=== PATIENT | female | born 1970 | race African-American/Black ===

== ENCOUNTER → 2016-12-29 | Outpatient (CLI) | payer MEDICARE ==
[2014-12-12 18:25] VITALS: BP 116/74
[~2016-12-29] MED LIST: AMLO5TAB2 PO; CARV25TA2 PO; CLON0.3T PO; CYCL10TA2 PO; FLUO40CA2 PO; GABA-586 PO; HYDR-2762 PO; IBUP-1060 PO; LISI40TA PO; MELO15TA23 PO; METH10TA4 PO; NORT75CA PO; POTA20TA82 PO; TIZA2TAB PO; TRAZ50TA15 PO
--- NOTE | 2016-12-29 16:21 | KCIC ---
INDICATION: Neck pain and pressure for 3 weeks. TECHNIQUE: 3 view cervical spine series was obtained. No comparison is available. FINDINGS: There is no fracture. There is no malalignment. Prevertebral soft tissues are within normal limits. Mild endplate spurring from C4-C5 through C6-C7 is noted. There is no widening of the atlantodental interval. There is a left cervical rib. Right C7 transverse process is prominent. IMPRESSION: Mild endplate spurring from C4-C5 through C6-C7. Electronically signed by: Ha Skelton MD (12/29/2016 4:17 PM) [facility] [place]
== END | disposition home or self-care (01) ==
LOC: KCIC 15:48
PROVIDERS: ATTEND Psychiatry & Neurology Neurology with Special Qualifications in Child Neurology
DX: M54.2 Cervicalgia (principal)
CPT/HCPCS: 72040

== ENCOUNTER → 2017-01-05 | Outpatient (CLI) | payer MEDICARE ==
[2014-12-12 18:25] VITALS: BP 116/74
--- NOTE | 2017-01-06 20:52 | SLEEP ---
DATE OF STUDY: 01/05/2017 OBJECTIVE: The patient is a 46-year-old female with excessive somnolence, who has had sleep studies in the past. Height 65 inches, weight 220 pounds. BMI 36.6 pounds. [place] sleep score 19. The patient also has narcolepsy. INTERPRETATION: The apnea-hypopnea index on this home study is 1.3 events per hour of sleep with a minimal oxygen saturation of 87%. No significant cardiac arrhythmias are seen. Snoring occurred 8.8% of the time. IMPRESSION: Essentially normal home sleep study showing no evidence of significant sleep disordered breathing. Thank you for letting us help with the patient's care. ISSA IRENE MD DR: PAUL/ly JOB#: [id number] / [id number] CHRIS Chow MD
== END | disposition home or self-care (01) ==
LOC: RT 08:33
PROVIDERS: ATTEND Psychiatry & Neurology Neurology with Special Qualifications in Child Neurology
DX: G47.30 Sleep apnea, unspecified (principal)
CPT/HCPCS: G0399

== ENCOUNTER → 2017-01-12 | Outpatient (CLI) | payer MEDICARE ==
[2014-12-12 18:25] VITALS: BP 116/74
--- NOTE | 2017-01-12 12:00 | RAD ---
DATE: 01/12/2017 EXAM: DIGITAL DIAGNOSTIC RT HISTORY: Follow-up on an asymmetry. COMPARISON: Right breast mammogram 04/07/2016, 03/26/2016 This study was interpreted with the benefit of Computerized Aided Detection (CAD). The breast parenchyma is primarily fatty replaced. Breast parenchyma level density A. FINDINGS: CC and MLO views of the right breast were obtained. There are no suspicious microcalcifications, masses or areas of architectural distortion. Previously seen asymmetry is less conspicuous and resembles adjacent fibroglandular tissue. Findings are otherwise stable from prior mammograms. IMPRESSION: Negative right mammogram. Recommend annual screening mammography BI-RADS CATEGORY: 1 NEGATIVE RECOMMENDED FOLLOW-UP: 12M 12 MONTH FOLLOW-UP PQRS compliance statement: Patient information was entered into a reminder system with a target due date 03/26/2017 for the next mammogram. Mammography is a sensitive method for finding small breast cancers, but it does not detect them all and is not a substitute for careful clinical examination. A negative mammogram does not negate a clinically suspicious finding and should not result in delay in biopsying a clinically suspicious abnormality. "Our facility is accredited by the [employer] Mammography Program."
== END | disposition home or self-care (01) ==
LOC: MAMMO 11:59
PROVIDERS: ATTEND Internal Medicine
DX: R92.8 Other abnormal and inconclusive findings on diagnostic imaging of breast (principal)
CPT/HCPCS: G0206; 77065

== ENCOUNTER 2017-07-02 13:08 | Emergency (ER) | payer MEDICARE ==
[2017-07-02] MEDS ORDERED: VALPROIC ACID (AS SODIUM SALT) 500 MG in IV DEXTROSE 5% 50 ML IV ×2 (13:30→17:00)
[2017-07-02 13:47] LABS: URINE HCG POC HCG NEGATIVE (Negative)
[2017-07-02 13:54] LABS: BILIRUBIN,URINE NEGATIVE (NEG); CLARITY,URINE CLEAR; COLOR,URINE YELLOW; GLUCOSE,URINE NEGATIVE (NEG); NITRITE,URINE NEGATIVE (NEG); PROTEIN,URINE NEGATIVE (NEG-TRACE); UROBILINOGEN,URINE 0.2 mg/dL (0.2 mg/dL)
[2017-07-02 14:02] LABS: BACTERIA,URINE FEW /HPF (0-FEW); RBC,URINE OCC /HPF (0-2); WBC,URINE 0 /HPF (0-4)
[2017-07-02 14:03] LABS: SQUAMOUS EPITHELIAL CELL,UR MOD /LPF
[2017-07-02 14:05] LABS: BARBITURATES NEG (NEG); BENZODIAZEPINES NEG (NEG); CANNABINOIDS NEG (NEG); COCAINE NEG (NEG); METHADONE NEG (NEG); OPIATES POS (NEG); PHENCYCLIDINE NEG (NEG)
[2017-07-02 14:10] LABS: AMPHETAMINE/METHAMPHETAMINE NEG (NEG); ETHANOL, URINE NEG (NEG)
[2017-07-02 14:11] LABS: ADD MAN DIFF? NO
[2017-07-02 14:17] LABS: BASO % 1 % (0-3); EOS # 0.2 x10^3/uL (0.0-0.7); EOS % 4 % (0-3); HEMATOCRIT 36.4 % (36.0-47.0); HEMOGLOBIN 12.1 g/dL (12.0-15.5); LYMPH # 2.6 x10^3/uL (1.0-4.8); LYMPH % 44 % (24-48); MEAN CORPUSCULAR HEMOGLOBIN 28 pg (25-35); MEAN CORPUSCULAR HGB CONC 33 g/dL (31-37); MEAN CORPUSCULAR VOLUME 83 fL (79-100); MONO # 0.5 x10^3/uL (0.0-1.1); MONO % 9 % (0-9); NEUT # 2.5 x10^3uL (1.8-7.7); NEUT % 43 % (31-73); PLATELET COUNT 225 x10^3/uL (140-400); RED CELL DISTRIBUTION WIDTH 14.6 % (11.5-14.5)
[2017-07-02 14:34] LABS: ANION GAP 4 (6-14); BLOOD UREA NITROGEN 16 mg/dL (7-20); BUN/CREATININE RATIO 18 (6-20); CALCIUM 8.5 mg/dL (8.5-10.1); CARBON DIOXIDE 30 mmol/L (21-32); CHLORIDE 100 mmol/L (98-107); CREATININE 0.9 mg/dL (0.6-1.0); GFR 81.6; GLUCOSE 107 mg/dL (70-99); POTASSIUM 4.3 mmol/L (3.5-5.1); SODIUM 134 mmol/L (136-145)
[2017-07-02] MEDS: IV NORMAL SALINE 1000ML BAG 1,000 ML IV ×2 (14:34)
[2017-07-02] MEDS: PROMETHAZINE 12.5 MG in IV NORMAL SALINE 50ML 50 ML IV (14:35)
[2017-07-02] MEDS: diphenhydrAMINE 50 MG/ML VIAL IVP ×4 (14:35→16:05)
[2017-07-02] MEDS: KETOROLAC 30 MG/ML INJ. IV ×2 (14:35)
[2017-07-02 14:40] LABS: ALBUMIN 3.4 g/dL (3.4-5.0); ALBUMIN/GLOBULIN RATIO 0.7 (1.0-1.7); ALK PHOS 66 U/L (46-116); ALT (SGPT) 27 U/L (14-59); AST (SGOT) 18 U/L (15-37); MAGNESIUM 1.8 mg/dL (1.8-2.4); TOTAL BILIRUBIN 0.1 mg/dL (0.2-1.0)
[2017-07-02] MEDS ORDERED: IV NORMAL SALINE 1000ML BAG 1,000 ML IV ×2 (15:35)
[2017-07-02] MEDS: ONDANSETRON PF 4 MG/2 ML VIAL. IV ×2 (16:05)
[2017-07-02] MEDS: PROCHLORPERAZINE 10 MG/2 ML VIAL. IV ×2 (16:05)
[2017-07-02] MEDS: SUMAtriptan. 6 MG/0.5 ML VIAL SQ ×2 (16:05)
[2017-07-02] MEDS: DEXAMETHASONE SOD PHOS 4 MG/ML VIAL IV ×2 (16:06)
[2017-07-02] MEDS: MAGNESIUM SULFATE 2GM 50 ML IV ×2 (16:36)
[2017-07-02] MEDS: VALPROIC ACID (AS SODIUM SALT) 500 MG in IV DEXTROSE 5% 50 ML IV (17:00)
[2017-07-02] MEDS ORDERED: METOPROLOL TART IMMED RELEASE 25 MG TABLET. PO ×2 (19:00)
[2017-07-02] MEDS ORDERED: TOPIRAMATE 25 MG TABLET. PO ×2 (21:00)
== END 2017-07-02 18:42 | disposition home or self-care (01) ==
LOC: ER 13:08 → 6 SOUTH 15:38
DX: R51 Headache (principal); R11.0 Nausea; H53.149 Visual discomfort, unspecified; I10 Essential (primary) hypertension; G89.29 Other chronic pain; Z88.8 Allergy status to other drugs, medicaments and biological substances; Z79.899 Other long term (current) drug therapy
CPT/HCPCS: 36415; 80053; 80307; 81001; 81025; 83735; 85025; 96365; 96366; 96367; 96368; 96372; 96375; 96376; 99285-25; J0780; J1100; J1200; J1885; J2405; J2550; J3030; J7030; J7060

== ENCOUNTER 2017-07-31 18:28 | Emergency (ER) | payer MEDICARE ==
[2017-07-31 19:31] LABS: ADD MAN DIFF? NO
[2017-07-31 19:33] LABS: BASO # 0.1 x10^3/uL (0.0-0.2); BASO % 1 % (0-3); EOS # 0.1 x10^3/uL (0.0-0.7); EOS % 2 % (0-3); HEMATOCRIT 35.8 % (36.0-47.0); HEMOGLOBIN 11.9 g/dL (12.0-15.5); LYMPH # 2.6 x10^3/uL (1.0-4.8); LYMPH % 38 % (24-48); MEAN CORPUSCULAR HEMOGLOBIN 27 pg (25-35); MEAN CORPUSCULAR HGB CONC 33 g/dL (31-37); MEAN CORPUSCULAR VOLUME 82 fL (79-100); MONO # 0.7 x10^3/uL (0.0-1.1); MONO % 10 % (0-9); NEUT # 3.5 x10^3uL (1.8-7.7); NEUT % 49 % (31-73); PLATELET COUNT 268 x10^3/uL (140-400); RED BLOOD COUNT 4.37 x10^6/uL (3.50-5.40)
[2017-07-31 19:42] LABS: ANION GAP 5 (6-14); BLOOD UREA NITROGEN 15 mg/dL (7-20); BUN/CREATININE RATIO 15 (6-20); CALCIUM 9.2 mg/dL (8.5-10.1); CARBON DIOXIDE 31 mmol/L (21-32); CHLORIDE 101 mmol/L (98-107); GFR 71.9; GLUCOSE 102 mg/dL (70-99); POTASSIUM 4.2 mmol/L (3.5-5.1); SODIUM 137 mmol/L (136-145)
[2017-07-31 19:44] LABS: INR 1.1 (0.8-1.1); PROTHROMBIN TIME PATIENT 13.3 SEC (11.7-14.0)
[2017-07-31] MEDS: IV NORMAL SALINE 1000ML BAG 1,000 ML IV (19:44)
[2017-07-31 19:45] LABS: PARTIAL THROMBOPLASTIN TIME 33 SEC (24-38)
[2017-07-31] MEDS: METOCLOPRAMIDE HCL 10 MG/2 ML VIAL. IV (19:45)
[2017-07-31] MEDS: diphenhydrAMINE 50 MG/ML VIAL IVP (19:45)
[2017-07-31 19:48] LABS: ALBUMIN 3.5 g/dL (3.4-5.0); ALBUMIN/GLOBULIN RATIO 0.7 (1.0-1.7); ALK PHOS 72 U/L (46-116); ALT (SGPT) 30 U/L (14-59); AST (SGOT) 20 U/L (15-37); TOTAL BILIRUBIN 0.3 mg/dL (0.2-1.0); TOTAL PROTEIN 8.3 g/dL (6.4-8.2)
[2017-07-31] MEDS: OXYMETAZOLINE 0.05% NASAL SPRAY 30ML BOTTLE. NS (20:08)
== END 2017-07-31 20:25 | disposition home or self-care (01) ==
LOC: ER 18:28
DX: R04.0 Epistaxis (principal); G43.909 Migraine, unspecified, not intractable, without status migrainosus; G89.29 Other chronic pain; I10 Essential (primary) hypertension; Z88.8 Allergy status to other drugs, medicaments and biological substances
CPT/HCPCS: 36415; 80053; 85025; 85610; 85730; 96361; 96374; 96375; 99284-25; J1200; J2765; J7030

== ENCOUNTER → 2018-01-13 | Outpatient (CLI) | payer MEDICARE ==
[2017-07-31 20:06] VITALS: BP 126/81
[~2018-01-13] MED LIST changes: +CEPH-264 PO; +LISI-130 PO; -LISI40TA PO; +SUMA25TA4 PO; +TRAZ-85 PO; -TRAZ50TA15 PO
--- NOTE | 2018-01-14 11:59 | RAD ---
DATE: 01/13/2018 EXAM: MAMMO ASHLIE SCREENING BILATERAL HISTORY: Routine screening COMPARISON: 01/12/2017, 04/07/2016, 03/26/2016, 01/17/2015 Bilateral CC and MLO views of the breasts were performed. Bilateral breast tomosynthesis was performed in CC and MLO projections. This study was interpreted with the benefit of Computerized Aided Detection (CAD). The breast parenchyma is primarily fatty replaced. Breast parenchyma level density A. FINDINGS: Benign calcifications are present. No suspicious masses, microcalcifications or architectural distortion is present to suggest malignancy in either breast. The visualized axillae are unremarkable. IMPRESSION: No mammographic evidence of malignancy. BI-RADS CATEGORY: 2 BENIGN FINDING(S) RECOMMENDED FOLLOW-UP: 12M 12 MONTH FOLLOW-UP Annual screening mammography is recommended, unless clinically indicated sooner based on symptoms or change in physical exam. PQRS compliance statement: Patient information was entered into a reminder system with a target due date for the next mammogram. Mammography is a sensitive method for finding small breast cancers, but it does not detect them all and is not a substitute for careful clinical examination. A negative mammogram does not negate a clinically suspicious finding and should not result in delay in biopsying a clinically suspicious abnormality. "Our facility is accredited by the [employer] Mammography Program."
== END | disposition home or self-care (01) ==
LOC: MAMMO 08:04
PROVIDERS: ATTEND Internal Medicine
DX: Z12.31 Encounter for screening mammogram for malignant neoplasm of breast (principal)
CPT/HCPCS: 77063; 77067

== ENCOUNTER → 2019-02-23 | Outpatient (CLI) | payer MEDICARE ==
[2017-07-31 20:06] VITALS: BP 126/81
[~2019-02-23] MED LIST changes: +AMLO5TAB10 PO; -AMLO5TAB2 PO; -GABA-586 PO; +GABA300C18 PO; -HYDR-2762 PO; +HYDR-2765 PO; -TIZA2TAB PO; +TIZA2TAB2 PO; +TRAZ-118 PO; -TRAZ-85 PO
--- NOTE | 2019-02-24 16:57 | RAD ---
DATE: 02/23/2019 EXAM: MAMMO ASHLIE SCREENING BILATERAL HISTORY: Routine screening COMPARISON: 12/22/2013, 01/17/2015, 03/26/2016, and 01/13/2018 mammographic exams This study was interpreted with the benefit of Computerized Aided Detection (CAD). Breast Density: FATTY The breast parenchyma is primarily fatty replaced. Breast parenchyma level density A. FINDINGS: No suspicious calcifications or masses in the interval. No distortion in the interval. IMPRESSION: Stable BI-RADS CATEGORY: 1 NEGATIVE RECOMMENDED FOLLOW-UP: 12M 12 MONTH FOLLOW-UP PQRS compliance statement: Patient information was entered into a reminder system with a target due date for the next mammogram. Mammography is a sensitive method for finding small breast cancers, but it does not detect them all and is not a substitute for careful clinical examination. A negative mammogram does not negate a clinically suspicious finding and should not result in delay in biopsying a clinically suspicious abnormality. "Our facility is accredited by the [employer] Mammography Program."
== END | disposition home or self-care (01) ==
LOC: MAMMO 09:00
PROVIDERS: ATTEND Family Medicine
DX: Z12.31 Encounter for screening mammogram for malignant neoplasm of breast (principal); N64.89 Other specified disorders of breast
CPT/HCPCS: 77063; 77067

== ENCOUNTER → 2019-06-06 | Outpatient (CLI) | payer MEDICARE ==
[2017-07-31 20:06] VITALS: BP 126/81
[~2019-06-06] MED LIST changes: +POTA20TA4 PO; -POTA20TA82 PO
--- NOTE | 2019-06-06 12:19 | CARD ---
MR#: [id number] Date of Study: 06/06/2019 Ordering Physician: SHAYLA GARCIA, Referring Physician: SHAYLA GARCIA, Tech: Bridgett Cancino APPROVED REPORT EXAM: Two-dimensional and M-mode echocardiogram with Doppler and color Doppler. Other Information Quality : FairHR: 92bpm INDICATION Chest Pain RISK FACTORS Hypertension Hyperlipidemia 2D DIMENSIONS RVDd3.9 (2.9-3.5cm)Left Atrium(2D)3.2 (1.6-4.0cm) IVSd1.3 (0.7-1.1cm)Aortic Root(2D)3.5 (2.0-3.7cm) LVDd4.9 (3.9-5.9cm)LVOT Diameter2.1 (1.8-2.4cm) PWd1.3 (0.7-1.1cm)LVDs3.0 (2.5-4.0cm) FS (%) 39.0 %SV79.6 ml LVEF(%)69.2 (>50%) Aortic Valve AoV Peak Paul.153.6cm/sAoV VTI29.8cm AO Peak GR.9.4mmHgLVOT Peak Paul.93.6cm/s LVOT VTI 18.80cmAO Mean GR.5mmHg MAIA (VMAX)1.99ez1PIE (VTI)2.12cm2 AI P 1/2 Likv963ql Mitral Valve MV E Xvoqzocc79.7cm/sMV DECEL NMFX67hm MV A Kxuikhzl49.2cm/sMV GSQ61it E/A Ratio0.9MVA (PHT)8.86cm2 TDI E/Lateral E'8.6E/Medial E'7.5 Pulmonary Valve PV Peak Xtoixkgc86.9cm/sPV Peak Grad.3mmHg Tricuspid Valve TR P. Ylpnhkxd901ii/sRAP MEIKPKFY5eiHx TR Peak Gr.54sqZeYMZK73wnZi Pulmonary Vein S1 Gqkosztb48.7cm/sD2 Iaokvidc02.5cm/s LEFT VENTRICLE The left ventricle is normal size. There is mild to moderate concentric left ventricular hypertrophy. The left ventricular systolic function is normal. The Ejection Fraction is 60-65%. There is normal L V segmental wall motion. Transmitral Doppler flow pattern is Grade I-abnormal relaxation pattern. RIGHT VENTRICLE The right ventricle is normal size. There is normal right ventricular wall thickness. The right ventr icular systolic function is normal. ATRIA The left atrium size is normal. The right atrium size is normal. The interatrial septum is intact wit h no evidence for an atrial septal defect or patent foramen ovale as noted on 2-D or Doppler imaging. AORTIC VALVE The aortic valve is normal in structure and function. Doppler and Color Flow revealed trace aortic re gurgitation. There is no significant aortic valvular stenosis. MITRAL VALVE The mitral valve is normal in structure and function. There is no evidence of mitral valve prolapse. There is no mitral valve stenosis. Doppler and Color Flow revealed no mitral valve regurgitation note d. TRICUSPID VALVE The tricuspid valve is normal in structure and function. Doppler and Color Flow revealed trace tricus pid regurgitation with an estimated PAP of 24 mmHg. There is no tricuspid valve stenosis. PULMONIC VALVE The pulmonic valve is not well visualized. Doppler and Color Flow revealed no pulmonic valvular regur gitation. GREAT VESSELS The aortic root is normal in size. The IVC is normal in size and collapses >50% with inspiration. PERICARDIAL EFFUSION There is no evidence of significant pericardial effusion. Critical Notification Critical Value: No <Conclusion> The left ventricular systolic function is normal. The Ejection Fraction is 60-65%. There is normal LV segmental wall motion. There is mild to moderate concentric left ventricular hypertrophy. Transmitral Doppler flow pattern is Grade I-abnormal relaxation pattern. Trace tricuspid regurgitation with an estimated PAP of 24 mmHg. There is no evidence of significant pericardial effusion. Signed by : Shayla Garcia, Electronically Approved : 06/06/2019 12:19:23
== END | disposition home or self-care (01) ==
LOC: ECHO 08:53
PROVIDERS: ATTEND Internal Medicine Cardiovascular Disease
DX: I51.7 Cardiomegaly (principal)
CPT/HCPCS: 93306

== ENCOUNTER 2019-06-18 22:48 | Emergency (ER) | payer MEDICARE ==
--- NOTE | 2019-06-19 00:26 | PHYS DOC ---
Past Medical History Past Medical History: Arthritis, Hypertension, Migraines, Sciatica, Other Additional Past Medical Histor: Chronic back pain, NARCOLEPSY, CHRONIC NOSEBLEEDS Past Surgical History: , Tonsillectomy, Other Additional Past Surgical Histo: Breast augmentation, CUFF SETTER OVERLOCK shunt, GASTRIC SLEEVE Alcohol Use: None Drug Use: None Adult General Chief Complaint Chief Complaint: HEADACHE HPI HPI Patient is a 48 year old -[place] female with history of chronic migraines hypertension who presents with persistent migraine-like headache for the past 2 weeks. Headache is described as throbbing and is located behind both eyes. Associated with nausea and light sensitivity. Patient denies vomiting. Denies fever chills, neck pain and stiffness. Patient does report nasal congestion rhinorrhea with sore throat. Patient compliant with home migraine medications. Patient's blood pressure noted to be elevated is over 110s. States she is compliant with pressure medication. No other acute symptoms or complaints. Patient is not been evaluated for her current symptoms prior to this evening's ED visit[] Review of Systems Review of Systems Review of symptoms as per history of present illness. All other systems were reviewed and found to be within normal limits, except as documented in this note. Current Medications Current Medications Current Medications Medications (Trade) Dose Ordered Sig/[place] Start Time Stop Time Status Last Admin Dose Admin Dexamethasone Sodium Phosphate (Decadron) 10 mg 1X ONCE 06/19/19 02:00 06/19/19 02:01 DC 06/19/19 01:59 10 MG Diphenhydramine HCl (Benadryl) 50 mg 1X ONCE 06/19/19 00:30 06/19/19 00:31 DC 06/19/19 00:16 50 MG Ketorolac Tromethamine (Toradol 30mg Vial) 30 mg 1X ONCE 06/19/19 02:00 06/19/19 02:01 DC 06/19/19 01:57 30 MG Labetalol HCl (Normodyne Iv Push) 20 mg 1X ONCE 06/19/19 00:30 06/19/19 00:31 DC 06/19/19 00:10 20 MG Metoclopramide HCl (Reglan Vial) 10 mg 1X ONCE 06/19/19 00:30 06/19/19 00:31 DC 06/19/19 00:16 10 MG Prochlorperazine Edisylate (Compazine) 10 mg 1X ONCE 06/19/19 00:30 06/19/19 00:31 DC 06/19/19 00:16 10 MG Sodium Chloride 1,000 ml @ 1,000 mls/hr 1X ONCE 06/19/19 01:00 06/19/19 01:59 DC 06/19/19 01:00 1,000 MLS/HR Allergies Allergies Allergies Coded Allergies Type Severity Reaction Last Updated Verified duloxetine HCl Allergy Severe swelling of extremities 08/13/13 Yes citalopram Allergy Intermediate 06/18/19 No losartan Allergy Intermediate 06/18/19 No pregabalin Allergy Intermediate Swelling 09/22/13 Yes Physical Exam Physical Exam Constitutional: Well developed, well nourished, no acute distress, non-toxic appearance. [] HENT: Normocephalic, atraumatic, bilateral external ears normal, oropharynx moist, no oral exudates, nose, congestion with clear rhinorrhea. [] Eyes: PERRLA, EOMI, conjunctiva normal. [] Neck: Normal range of motion. [] Cardiovascular:Heart rate regular rhythm, no murmur [] Lungs & Thorax: Bilateral breath sounds clear to auscultation [] Abdomen: Bowel sounds normal, soft, no tenderness. [] Skin: Warm, dry, no erythema, no rash. [] Back: No tenderness, no CVA tenderness. [] Extremities: No tenderness, ROM intact, no edema. [] Neurologic: Alert and oriented X 3, CN 2-12 grossly intact, normal motor function, normal sensory function, no focal deficits noted. [] Psychologic: Affect normal, judgement normal, mood normal. [] Current Patient Data Vital Signs Vital Signs Date Time Temp Pulse Resp B/P (MAP) Pulse Ox O2 Delivery O2 Flow Rate FiO2 06/19/19 01:22 109 14 99 06/19/19 00:10 160/111 06/18/19 22:58 98.2 Room Air 98.2 Lab Values Laboratory Tests Test 06/19/19 00:06 Influenza Type A Antigen Negative (NEGATIVE) Influenza Type B Antigen Negative (NEGATIVE) EKG EKG [] Radiology/Procedures Radiology/Procedures [] Course & Med Decision Making Course & Med Decision Making Pertinent Labs and Imaging studies reviewed. (See chart for details) [Headache, nausea significantly improved with tx. BP 130's/70's on recheck. Mild URI symptoms, no fever, neck pain, rash or neuro deficits. Influenza and Strep negative. PCP f/u recommended. Return precautions reviewed. ] Ashlee Disclaimer Dragon Disclaimer This electronic medical record was generated, in whole or in part, using a voice recognition dictation system. Departure Departure Impression: Primary Impression: Headache Additional Impressions: Accelerated hypertension URI (upper respiratory infection) Disposition: HOME, SELF-CARE Condition: GOOD Referrals: MICHELLE FUNG MD (PCP) Patient Instructions: Hypertension, Migraine Headache, Upper Respiratory Infection, Adult, [facility] Additional Instructions: You were evaluated in the ED for headache, nausea and sore throat. Lab work was performed and is non-diagnostic. Your symptoms are consistent with migraine headache with upper respiratory tract infection. Please take Excedrin Migraine for headache and Compazine as needed for additional relief. Continue home migraine prophylaxis blood pressure medications. Follow-up with your PCP in 1-2 days for reevaluation if symptoms persist. Return to the ED if new or worsening symptoms. Scripts Prochlorperazine Maleate (Compazine) 10 Mg Tablet 10 MG PO Q8HRS for NAUSEA MDD 3, #10 TAB Prov: TRAVIS ROMO DO 06/19/19 Problem Qualifiers TRAVIS ROMO DO Jun 19, 2019 00:26
[2019-06-19] MEDS ORDERED: LABETALOL 20 MG/4 ML DISP.SYRIN. IVP ONE (00:30)
[2019-06-19] MEDS ORDERED: diphenhydrAMINE 50 MG/ML VIAL IVP ONE (00:30)
[2019-06-19] MEDS ORDERED: PROCHLORPERAZINE 10 MG/2 ML VIAL. IV ONE (00:30)
[2019-06-19] MEDS ORDERED: METOCLOPRAMIDE HCL 10 MG/2 ML VIAL. IVP ONE (00:30)
[2019-06-19 00:40] LABS: INFLUENZA A PATIENT NEGATIVE (NEGATIVE); INFLUENZA B PATIENT NEGATIVE (NEGATIVE)
[2019-06-19] MEDS ORDERED: IV NORMAL SALINE 1000ML BAG 1,000 ML IV ONE (01:00)
[2019-06-19] MEDS ORDERED: DEXAMETHASONE SOD PHOS 4 MG/ML VIAL IVP ONE (02:00)
[2019-06-19] MEDS ORDERED: KETOROLAC 30 MG/ML VIAL. IVP ONE (02:00)
[2019-06-19 02:34] VITALS: BP 147/96
[2019-06-19] MEDS ORDERED: PROC10TA57 PO (02:41)
[2019-06-19] MEDS ORDERED: KETO10TA PO (03:04)
== END 2019-06-19 03:06 | disposition home or self-care (01) ==
LOC: ER 22:48
DX: G43.909 Migraine, unspecified, not intractable, without status migrainosus (principal); I10 Essential (primary) hypertension; J06.9 Acute upper respiratory infection, unspecified; G89.29 Other chronic pain; Z88.8 Allergy status to other drugs, medicaments and biological substances
CPT/HCPCS: 87070; 87804; 87880; 96374; 96375; 99284; J0780; J1100; J1200; J1885; J2765; J3490; J7030

== ENCOUNTER 2020-03-18 16:26 | Emergency (ER) | payer MEDICARE ==
[~2020-03-18 16:26] MED LIST changes: +AMLO-186 PO; -AMLO5TAB10 PO; +KETO10TA PO; +PROC10TA57 PO; -TIZA2TAB2 PO; +TIZA2TAB4 PO
[2020-03-19] MEDS ORDERED: AZIT250T6 PO (17:11)
== END 2020-03-18 21:15 | disposition left against medical advice (07) ==
LOC: ER 16:26
DX: R51.9 Headache, unspecified (principal); Z53.21 Procedure and treatment not carried out due to patient leaving prior to being seen by health care provider

== ENCOUNTER 2020-03-19 13:59 | Emergency (ER) | payer BC, MEDICARE ==
[~2020-03-19] VITALS: Ht 162.6 cm; Wt 104.0 kg
[2020-03-19] MEDS ORDERED: PROCHLORPERAZINE 10 MG/2 ML VIAL. IV ONE (15:45)
[2020-03-19] MEDS ORDERED: diphenhydrAMINE 50 MG/ML VIAL IVP ONE (15:45)
[2020-03-19] MEDS ORDERED: fentaNYL PF VIAL 100 MCG/2 ML VIAL IVP ONE (15:45)
--- NOTE | 2020-03-19 15:45 | PHYS DOC ---
Past Medical History Past Medical History: Arthritis, Hypertension, Migraines, Sciatica, Other Additional Past Medical Histor: Chronic back pain, NARCOLEPSY, CHRONIC NOSEBLEEDS Past Surgical History: , Tonsillectomy, Other Additional Past Surgical Histo: Breast augmentation, COLLISION REPAIRER shunt, GASTRIC SLEEVE Smoking Status: Never Smoker Alcohol Use: None Drug Use: None General Adult EDM: Chief Complaint: HEADACHE HPI: HPI: Patient is a 49 year old female who presents with states for the last 3 weeks she has had a right sided migraine. She states that she has been trying to treat at home and she has been talking to Dr. Irene and he called in sumatriptan and Fioricet for her. She states they are not working. She states this feels like her usual migraines but it is almost to the point where it is the worst headache she is ever felt. She states it is throbbing. Patient rates her pain a 10 out of 10. She also has light sensitivity and some nausea. Patient has a history of COLLISION REPAIRER shunt, gastric sleeve, , sciatica, chronic back pain, tonsillectomy, migraine, narcolepsy, arthritis, chronic nosebleeds. The patient denies syncope, dizziness, abdominal pain, diarrhea, and vomiting, numbness or tingling, focal weakness, shortness of breath, chest pain. Review of Systems: Review of Systems: Constitutional: Denies fever or chills. [] Eyes: Denies change in visual acuity. +Light sensitivity [] HENT: Denies nasal congestion or sore throat. [] Respiratory: Denies cough or shortness of breath. [] Cardiovascular: Denies chest pain or edema. [] GI: Denies abdominal pain, nausea, vomiting, bloody stools or diarrhea. [] : Denies dysuria. [] Musculoskeletal: Denies back pain or joint pain. [] Integument: Denies rash. [] Neurologic: + headache, denies focal weakness or sensory changes. [] Endocrine: Denies polyuria or polydipsia. [] Lymphatic: Denies swollen glands. [] Psychiatric: Denies depression or anxiety. [] Heart Score: Risk Factors: Risk Factors: DM, Current or recent (<one month) smoker, HTN, HLP, family history of CAD, obesity. Risk Scores: Score 0 - 3: 2.5% MACE over next 6 weeks - Discharge Home Score 4 - 6: 20.3% MACE over next 6 weeks - Admit for Clinical Observation Score 7 - 10: 72.7% MACE over next 6 weeks - Early Invasive Strategies Allergies: Allergies: Allergies Coded Allergies Type Severity Reaction Last Updated Verified duloxetine HCl Allergy Severe swelling of extremities 08/13/13 Yes citalopram Allergy Intermediate 06/18/19 No losartan Allergy Intermediate 06/18/19 No pregabalin Allergy Intermediate Swelling 09/22/13 Yes Physical Exam: PE: Constitutional: Well developed, well nourished, no acute distress, non-toxic appearance. [] HENT: Normocephalic, atraumatic, bilateral external ears normal, oropharynx moist, no oral exudates, nose normal. [] Eyes: PERRLA, EOMI, conjunctiva normal, no discharge. Light sensitivity. [] Neck: Normal range of motion, no tenderness, supple, no stridor. [] Cardiovascular:Heart rate regular rhythm, no murmur [] Lungs & Thorax: Bilateral breath sounds clear to auscultation [] Abdomen: Bowel sounds normal, soft, no tenderness, no masses, no pulsatile masses. [] Skin: Warm, dry, no erythema, no rash. [] Back: No tenderness, no CVA tenderness. [] Extremities: No tenderness, no cyanosis, no clubbing, ROM intact, no edema. [] Neurologic: Alert and oriented X 3, normal motor function, normal sensory function, no focal deficits noted. [] Psychologic: Affect normal, judgement normal, mood normal. [] Current Patient Data: Vital Signs: Vital Signs Date Time Temp Pulse Resp B/P (MAP) Pulse Ox O2 Delivery O2 Flow Rate FiO2 03/19/20 15:19 96.9 100 18 125/86 (99) 96 Room Air 96.9 EKG: EKG: [] Radiology/Procedures: Radiology/Procedures: [] Impression: [facility] [address] [place] [address] IMAGING REPORT Signed PATIENT: PEDRO BAIRD DACCOUNT: [id number] : 1970 LOCATION: ER AGE: 49 SEX: F EXAM STATUS: REG ER ORD. PHYSICIAN: MADELINE SEE APRN REASON: HEADACHE, HX SHUNT PROCEDURE: CT HEAD WO CONTRAST CT HEAD WO CONTRAST Clinical indications: HEADACHE, HX of SHUNT Comparison: June 29, 2011. Technique: Noncontrast axial cross sectional scanning of the head was performed. RS compliance Statement One or more of the following individualized dose reduction techniques were utilized for this study: 1. Automated exposure control 2. Adjustment of the mA and/or kV according to patient size 3. Use of iterative reconstruction technique Findings: A ventricular shunt catheter is seen on the right side extending through the anterior body of the right lateral ventricle across the foramen of [place]ro into the anterior aspect of the left lateral ventricle. This is unchanged in position from the previous study. No acute intracranial hemorrhage or midline shift or mass-effect or hydrocephalus or extra-axial fluid collection is seen. No focal hypodense area or sulci effacement is seen to indicate an acute infarct or edema radiographically. No skull fracture or pneumocephalus is seen. No opacification of the mastoid sinuses or the middle ear cavities is seen. Air-fluid levels are seen within both maxillary sinuses. The maxillary sinuses are not completely seen in this study. Impression: No acute intracranial abnormality is seen. Air-fluid levels are seen within both maxillary sinuses which may be indicative of acute maxillary sinusitis. Electronically signed by: Jason Richter MD (03/19/2020 4:00 PM) [id number] DICTATED and SIGNED BY: JASON RICHTER MD DATE: 03/19/20 1600 Course & Med Decision Making: Course & Med Decision Making Pertinent Labs and Imaging studies reviewed. (See chart for details) See HPI. Speaks in full complete sentences. Alert and oriented x4. Ambulatory with a steady gait. PERRLA. Patient is given IV Benadryl, dexamethasone, Compazine and fentanyl. There is no neck stiffness and she is full range of motion of her neck. No neck tenderness. She denies any neck pain. Vital signs are within normal limits. She denies any recent illnesses. Blood work unremarkable. CT shows no acute findings except to show some sinusitis. Patient is reevaluated and she states her pain is gone. She states she is feeling a lot better. Patient is discharged home and to follow up with Dr Irene. Ashlee Disclaimer: Ashlee Disclaimer: This electronic medical record was generated, in whole or in part, using a voice recognition dictation system. NIHSS Stroke Scale NIH Stroke Scale: NIH Stroke Scale Response (Comments) Value Level of Consciousness: 0 Alert/Responsive 0 LOC Questions: 0 Answers both correctly 0 LOC Commands: 0 Performs both tasks 0 Best Gaze: 0 Normal 0 Visual: 0 No visual loss 0 Facial Palsy: 0 Normal, symmetrical 0 Motor - Left Arm 0 No drift 0 Motor - Right Arm 0 No drift 0 Motor - Left Leg 0 No drift 0 Motor: Right Leg 0 No drift 0 Limb Ataxia: 0 Absent 0 Sensory: 0 No loss 0 Best Language: 0 Normal 0 Dysathria: 0 Normal 0 Extinction and Inattention: 0 Normal 0 Total 0 Departure Departure Impression: Primary Impression: Migraine Qualified Codes: G43.909 - Migraine, unspecified, not intractable, without status migrainosus Additional Impression: Sinusitis Qualified Codes: J01.10 - Acute frontal sinusitis, unspecified Disposition: 01 DC HOME SELF CARE/HOMELESS Condition: STABLE Referrals: MICHELLE FUNG MD (PCP) ISSA IRENE MD Patient Instructions: Migraine Headache, Sinusitis Additional Instructions: Follow up with Dr Irene as soon as possible. If symptoms return, worsen,or you have syncope, weakness or numbness and tingling return to the ED. Scripts Azithromycin (AZITHROMYCIN TABLET) 250 Mg Tablet 1 PKG PO UD for 5 Days, #6 TAB 0 Refills 2 the first day followed by 1 for days 2-5 Prov: MADELINE SEE APRN 03/19/20 MADELINE SEE APRN Mar 19, 2020 15:45
--- NOTE | 2020-03-19 16:03 | RAD ---
CT HEAD WO CONTRAST Clinical indications: HEADACHE, HX of SHUNT Comparison: June 29, 2011. Technique: Noncontrast axial cross sectional scanning of the head was performed. PQRS compliance Statement One or more of the following individualized dose reduction techniques were utilized for this study: 1. Automated exposure control 2. Adjustment of the mA and/or kV according to patient size 3. Use of iterative reconstruction technique Findings: A ventricular shunt catheter is seen on the right side extending through the anterior body of the right lateral ventricle across the foramen of Monro into the anterior aspect of the left lateral ventricle. This is unchanged in position from the previous study. No acute intracranial hemorrhage or midline shift or mass-effect or hydrocephalus or extra-axial fluid collection is seen. No focal hypodense area or sulci effacement is seen to indicate an acute infarct or edema radiographically. No skull fracture or pneumocephalus is seen. No opacification of the mastoid sinuses or the middle ear cavities is seen. Air-fluid levels are seen within both maxillary sinuses. The maxillary sinuses are not completely seen in this study. Impression: No acute intracranial abnormality is seen. Air-fluid levels are seen within both maxillary sinuses which may be indicative of acute maxillary sinusitis. Electronically signed by: Jason Richter MD (03/19/2020 4:00 PM) [id number]
[2020-03-19 16:15] LABS: BASO # 0.2 x10^3/uL (0.0-0.2); BASO % 1 % (0-3); EOS # 0.1 x10^3/uL (0.0-0.7); EOS % 1 % (0-3); HEMATOCRIT 41.6 % (36.0-47.0); HEMOGLOBIN 13.7 g/dL (12.0-15.5); LYMPH # 1.9 x10^3/uL (1.0-4.8); LYMPH % 14 % (24-48); MEAN CORPUSCULAR HEMOGLOBIN 28 pg (25-35); MEAN CORPUSCULAR HGB CONC 33 g/dL (31-37); MEAN CORPUSCULAR VOLUME 84 fL (79-100); MONO # 1.6 x10^3/uL (0.0-1.1); MONO % 12 % (0-9); NEUT # 9.5 x10^3/uL (1.8-7.7); NEUT % 71 % (31-73); PLATELET COUNT 256 x10^3/uL (140-400); RED BLOOD COUNT 4.98 x10^6/uL (3.50-5.40); WHITE BLOOD COUNT 13.4 x10^3/uL (4.0-11.0)
[2020-03-19] MEDS ORDERED: DEXAMETHASONE 4 MG TABLET PO ONE (16:15)
[2020-03-19 16:24] LABS: PROTHROMBIN TIME PATIENT 14.2 SEC (11.7-14.0)
[2020-03-19 16:34] LABS: CALCIUM 9.1 mg/dL (8.5-10.1); CREATININE 1.1 mg/dL (0.6-1.0); GFR 63.9; POTASSIUM 4.8 mmol/L (3.5-5.1)
[2020-03-19 16:39] LABS: ALBUMIN 3.7 g/dL (3.4-5.0); ALBUMIN/GLOBULIN RATIO 0.7 (1.0-1.7); TOTAL BILIRUBIN 0.5 mg/dL (0.2-1.0); TOTAL PROTEIN 9.1 g/dL (6.4-8.2)
[2020-03-19] MEDS ORDERED: AZIT250T6 PO (17:11)
[2020-03-19 17:19] VITALS: BP 131/83
== END 2020-03-19 17:24 | disposition home or self-care (01) ==
LOC: ER 13:59
DX: G43.909 Migraine, unspecified, not intractable, without status migrainosus (principal); J01.10 Acute frontal sinusitis, unspecified; I10 Essential (primary) hypertension; G89.29 Other chronic pain; Z88.8 Allergy status to other drugs, medicaments and biological substances
CPT/HCPCS: 36415; 70450; 80053; 85025; 85610; 96374; 96375; 99285; J0780; J1200; J3010

== ENCOUNTER → 2020-03-29 | Outpatient (CLI) | payer MEDICARE, BC ==
[2020-03-19 17:19] VITALS: BP 131/83
[~2020-03-29] MED LIST changes: +AZIT250T6 PO
--- NOTE | 2020-03-29 18:14 | KCIC ---
Bilateral digital screening mammograms with 3-D tomosynthesis: Reason for examination: Routine screening. Comparison is made to previous studies dated back to 03/26/2016. Bilateral mammograms in CC and oblique projections were obtained with 2-D imaging and 3-D tomosynthesis imaging on a [employer] Inspiration unit and reviewed on the workstation. Interpretation was made with the benefit of CAD. The skin and nipples show no abnormalities. No abnormal axillary lymph nodes are seen. The breast parenchyma is predominantly fatty. (Breast density: Category A.) There are no dominant masses, suspicious calcifications or architectural distortion. Impression: No evidence of malignancy. Recommend routine screening. BI-RAD Category 1: Negative. "Our facility is accredited by the [employer] Mammography Program." This patient's information has been entered into a reminder system for the patient to be notified with the results of her examination and a target date for the next mammogram. Electronically signed by: Annie Aly MD (03/29/2020 6:11 PM) [id number]
== END ==
LOC: KCIC MAMMO 13:46
PROVIDERS: ATTEND Family Medicine
DX: Z12.31 Encounter for screening mammogram for malignant neoplasm of breast (principal)
CPT/HCPCS: 77063; 77067

== ENCOUNTER → 2020-04-15 | Outpatient (CLI) | payer BC, MEDICARE ==
[2020-03-19 17:19] VITALS: BP 131/83
--- NOTE | 2020-04-15 15:09 | KCIC ---
BRAIN W/O CONTRAST Date: 04/15/2020 1:15 PM Indication: MIGRAINE / Spl. 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 Info obtained prior to MRI. / History: New onset of recent migraine with an ER visit for the severity. Comparison: CT 03/19/2020. Technique: Multiplanar multisequence MRI of the brain was performed without intravenous contrast using the standard protocol. Findings: Postsurgical changes of right frontal approach ventricular shunt catheter terminating at the midline. Unchanged decompressed ventricles. No acute infarct. No acute or chronic hemorrhage. The ventricles are normal in size and configuration without hydrocephalus. Mild scattered FLAIR hyperintensities in the subcortical and periventricular deep white matter, a nonspecific finding, most commonly seen with chronic small vessel ischemic disease. The scalp and calvarium are normal. Partial empty sella. No Chiari malformation. The visualized upper cervical spine is normal. The visualized orbits and globes are normal. Mild right and moderate left maxillary sinus mucosal thickening with air-fluid levels. The mastoid air cells are clear. Normal flow voids within the vertebral, basilar, and internal carotid arteries indicating patency. IMPRESSION: 1. No acute infarct, hemorrhage, mass, or hydrocephalus. 2. Right frontal approach ventricular shunt catheter. Unchanged configuration of the decompressed ventricles. 3. Left greater than right maxillary sinus disease with air-fluid levels, which could represent acute sinusitis in the appropriate clinical setting. Electronically signed by: Armen Costa MD (04/15/2020 3:06 PM) [id number]
== END ==
LOC: KCIC MRI 12:58
PROVIDERS: ATTEND Psychiatry & Neurology Neurology with Special Qualifications in Child Neurology
DX: G43.909 Migraine, unspecified, not intractable, without status migrainosus (principal)
CPT/HCPCS: 70551

== ENCOUNTER → 2020-12-16 | Outpatient (CLI) | payer BC, MEDICARE ==
[~2020-12-16] MED LIST changes: +TIZA-58 PO; -TIZA2TAB4 PO
--- NOTE | 2020-12-16 21:28 | KCIC ---
Right knee 3 views. HISTORY: Right knee pain, M 25.561 3 views were taken of the right knee. There is slight spurring at the intercondylar eminence. There i s mild spurring in the medial joint compartment on the oblique view. There is mild spurring on the pa tella on the lateral view. There is no fracture or joint effusion. IMPRESSION: 1. Mild arthritis right knee. Electronically signed by: Bayron Lopez MD (12/16/2020 9:25 PM) [facility]
== END ==
LOC: KCIC 12:48
PROVIDERS: ATTEND Family Medicine
DX: M17.11 Unilateral primary osteoarthritis, right knee (principal)
CPT/HCPCS: 73562

== ENCOUNTER → 2021-01-22 | Outpatient (CLI) | payer BC, MEDICARE ==
--- NOTE | 2021-01-22 11:48 | KCIC ---
Bilateral diagnostic digital mammograms with 3-D tomosynthesis: Reason for examination: Right breast lump and pain. Comparison is made to previous studies dated back to 01/17/2015. Bilateral mammograms in CC and oblique projections were obtained with 2-D imaging and 3-D tomosynthes is imaging on a [employer] Inspiration unit and reviewed on the workstation. Interpretation was made wit h the benefit of CAD. The skin and nipples show no abnormalities. No abnormal axillary lymph nodes are seen. The breast par enchyma is predominantly fatty. (Breast density: Category A.) There are no dominant masses, suspiciou s calcifications or architectural distortion. Benign calcifications are present. Impression: No evidence of malignancy. Ultrasound to follow. BI-RAD Category 0: Incomplete. Needs additional imaging evaluation. Right breast ultrasound: Ultrasound examination of the right breast and axillary regions of the right breast was performed. No cystic or solid nodules or architectural distortions are seen. No abnormal appearing lymph nodes a re seen right axilla. IMPRESSION: No focal abnormality seen in the right breast. Recommend routine mammographic follow-up. BI-RADS Category 2: Benign. "Our facility is accredited by the [employer] Mammography Program." This patient's information has been entered into a reminder system for the patient to be notified wit h the results of her examination and a target date for the next mammogram. Electronically signed by: Annie Aly MD (01/22/2021 11:45 AM) [email or web address]
== END ==
LOC: KCIC MAMMO 08:43
PROVIDERS: ATTEND Family Medicine
DX: N63.10 Unspecified lump in the right breast, unspecified quadrant (principal)
CPT/HCPCS: 76641; 77066; G0279; 77062